=== PATIENT | male | born 1990 | race Caucasian/White ===

== ENCOUNTER 2017-01-24 18:40 | Emergency (ER) | payer BC, OTHER ==
--- NOTE | 2017-01-24 19:39 | UC ---
UC General HPI - HPI Summary HPI Summary: complaint of 2 moles on his neck that he has had for several years bought a kit for removal with rubber bands and floss trying to get them off concerned that they are infected one of them is slightly painful denies fever and chills - History of Current Complaint Chief Complaint: [place] Stated Complaint: SOFT TISSUE COMPLAINT Hx Obtained From: Patient - Allergy/Home Medications Allergies/Adverse Reactions: Allergies Allergy/AdvReac Type Severity Reaction Status Date / Time No Known Allergies Allergy Verified 01/24/17 19:22 PMH/Surg Hx/FS Hx/Imm Hx Previously Healthy: Yes Endocrine History Of: Denies: Diabetes, Thyroid Disease Cardiovascular History Of: Denies: Cardiac Disorders, Hypertension Respiratory History Of: Denies: COPD, Asthma GI/ History Of: Denies: Ulcer - Surgical History Surgical History: None - Family History Known Family History: Negative: Cardiac Disease, Hypertension, Renal Disease - Social History Occupation: Employed Full-time Lives: With Family Alcohol Use: Occasionally Substance Use Type: None Smoking Status (MU): Never Smoked Tobacco Review of Systems Constitutional: Negative Skin: Other - moles Eyes: Negative ENT: Negative Respiratory: Negative Cardiovascular: Negative Gastrointestinal: Negative Genitourinary: Negative Motor: Negative Neurovascular: Negative Musculoskeletal: Negative Neurological: Negative Psychological: Negative All Other Systems Reviewed And Are Negative: Yes Physical Exam Triage Information Reviewed: Yes Appearance: No Pain Distress, Well-Nourished Vital Signs: Initial Vital Signs Temp 99.4 F 01/24/17 19:14 Pulse 113 01/24/17 19:14 Resp 20 01/24/17 19:14 BP 153/81 01/24/17 19:14 Pulse Ox 100 01/24/17 19:14 Vital Signs Reviewed: Yes Eyes: Positive: Conjunctiva Clear ENT: Positive: Pharynx normal, TMs normal Neck: Positive: No Lymphadenopathy Respiratory: Positive: Lungs clear, Normal breath sounds, No respiratory distress Cardiovascular: Positive: RRR, No Murmur, Pulses Normal Abdomen Description: Positive: Nontender, Soft Bowel Sounds: Positive: Present Musculoskeletal Exam: Normal Neurological: Positive: Alert Psychological Exam: Normal Skin: Positive: Other - left side of neck- raised nevus dark brown approx 3x4mm right side of neck raised nevus various shades of brownish red many moles throughout trunk Course/Dx - Course Course Of Treatment: exam completed. d/t variety of moles will refer to dermatology for followup - Differential Dx - Multi-Symptom Provider Diagnoses: nevus, elevated blood pressure Discharge - Discharge Plan Condition: Stable Disposition: HOME Patient Education Materials: Atypical Mole (ED) Referrals: [facility] [place] PHYSICIAN REFERRAL [Outside] Mei Ellis [Medical Doctor] - Additional Instructions: Your blood pressure is elevated. Please contact your primary care provider within 1 day -4 weeks for further evaluation. please call dermatology for followup care Please review your discharge instructions. If your symptoms do not improve please call your primary care provider or return to urgent care
== END 2017-01-24 20:10 | disposition home or self-care (01) ==
LOC: UCEAST 18:40
DX: D22.4 Melanocytic nevi of scalp and neck (principal); R03.0 Elevated blood-pressure reading, without diagnosis of hypertension
CPT/HCPCS: 99211; G0463

== ENCOUNTER 2018-06-28 20:02 | Emergency (ER) | payer BC ==
--- NOTE | 2018-06-28 21:02 | RAD ---
EXAM: US Scrotum CLINICAL HISTORY: 27 years old, male; Pain; Scrotum pain; Additional info: Acute pain lt TECHNIQUE: Real-time ultrasound of the scrotum with color Doppler and image documentation. COMPARISON: No relevant prior studies available. FINDINGS: Right testicle: The right testicle measures 5.2 x 2.6 x 3.0 cm. Homogeneous echogenicity with no mass. Normal arterial waveforms. No torsion. Left testicle: The left testicle measures 5.3 x 2.4 x 3.3 cm. Homogeneous echogenicity with no mass. Normal arterial waveforms. No torsion. Epididymides: The right epididymis measures 0.6 x 1.5 cm AP and transverse. The left epididymal head measures 1.6 x 2.5 cm AP in transverse and contains a 2.5 x 2.5 x 1.6 cm cyst. Scrotum: Unremarkable. IMPRESSION: 1. Normal testicles bilaterally. No torsion. 2. 2.5 x 2.5 x 1.6 cm left epididymal head cyst.
--- NOTE | 2018-06-28 21:06 | ED ---
GI/ HPI - HPI Summary HPI Summary: This patient is a 27 year old M presenting to [facility] with a chief complaint of intermittent left testicular pain since several months ago. The patient reports sudden onset of symptoms but notes the pain then resolved and came back worse than before. The patient notes that he initially thought the pain was due to wearing pants that are too tight. The patient rates the pain 0/10 in severity. Symptoms aggravated by standing for long periods of time. Symptoms alleviated by nothing. Patient reports a lump and swelling to his left testicle. Patient denies dysuria, hematuria, or groin pain. Patient takes Claritin D. Patient notes that he has recently received several vaccines in preparation for a trip to [place]. - History of Current Complaint Chief Complaint: EDUrogenitalProblems Time Seen by Provider: 06/28/18 20:56 Stated Complaint: SWOLLEN TESTICLES Hx Obtained From: Patient Onset/Duration: Started Weeks Ago, Atraumatic, Still Present Timing: Constant, Lasting Days Current Severity: None Pain Intensity: 0 Additional Locations for Males: Testicles - left testicle Associated Signs and Symptoms: Negative: Hematuria, Dysuria Aggravating Factor(s): Walking/Exertion Alleviating Factor(s): Nothing - Allergy/Home Medications Allergies/Adverse Reactions: Allergies Allergy/AdvReac Type Severity Reaction Status Date / Time No Known Allergies Allergy Verified 01/24/17 19:22 PMH/Surg Hx/FS Hx/Imm Hx Endocrine/Hematology History: Denies: Hx Diabetes, Hx Thyroid Disease Cardiovascular History: Denies: Hx Hypertension Respiratory History: Reports: Hx Seasonal Allergies Denies: Hx Asthma, Hx Chronic Obstructive Pulmonary Disease (COPD) GI History: Denies: Hx Ulcer Infectious Disease History: No Infectious Disease History: Denies: Hx Hepatitis, Hx Human Immunodeficiency Virus (HIV), Traveled Outside the in Last 30 Days - Family History Known Family History: Negative: Cardiac Disease, Hypertension, Renal Disease - Social History Alcohol Use: Occasionally Substance Use Type: Reports: None Smoking Status (MU): Never Smoked Tobacco Review of Systems Negative: Fever Negative: Epistaxis Negative: Cough Negative: Vomiting Positive: other - left testicular pain. Negative: dysuria, hematuria All Other Systems Reviewed And Are Negative: Yes Physical Exam - Summary Physical Exam Summary: Appearance: Well-appearing, Well-nourished, lying in bed comfortably Skin: Warm, dry, no obvious rash Eyes: sclera anicteric, no conjunctival pallor ENT: mucous membranes moist, pharynx appears normal Neck: Supple, nontender Respiratory: Clear to auscultation, no signs of respiratory distress Cardiovascular: Normal S1, S2. No murmurs. Normal distal pulses in tibial and radial bilaterally. Abdomen: Soft, nontender, normal active bowel sounds present Musculoskeletal: Normal, Strength/ROM Intact Neurological: A&Ox3, awake and alert, mentation is normal, speech is fluent and appropriate Psychiatric: affect is normal, does not appear anxious or depressed : normal external genitalia, no swelling in either testicle, lie of testicles is normal, swelling palpable of superior pole of left testicle suggestive of a varicocele, no swelling in groin Triage Information Reviewed: Yes Vital Signs On Initial Exam: Initial Vitals Temp Pulse Resp BP Pulse Ox 98.8 F 96 18 147/78 98 06/28/18 20:17 06/28/18 20:17 06/28/18 20:17 06/28/18 20:17 06/28/18 20:17 Vital Signs Reviewed: Yes Diagnostics - Vital Signs Vital Signs Temp Pulse Resp BP Pulse Ox 06/28/18 20:17 98.8 F 96 18 147/78 98 - Laboratory Lab Statement: Any lab studies that have been ordered have been reviewed, and results considered in the medical decision making process. - Additional Comments Diagnostic Additional Comments: Testicular Ultrasound Interpreted by radiologist. Impression: normal testicles bilaterally, no torsion. 2.5 x 2.5 x1.6 cm left epididymal head cyst. Dr. Childers has reviewed this report. GIGU Course/Dx - Diagnoses Provider Diagnoses: Testicular pain, left Discharge - Sign-Out/Discharge Documenting (check all that apply): Patient Departure - Discharge Plan Condition: Stable Disposition: HOME Patient Education Materials: Testicle Pain (ED) Referrals: Krish Nieves MD [Medical Doctor] - Additional Instructions: Contact the urology office to arrange an appt. You should be ok to travel, I don 't think this is likely to worsen substantially in the near future. - Billing Disposition and Condition Condition: STABLE Disposition: Home - Attestation Statements Document Initiated by Scribe: Yes Documenting Scribe: Stella Jorge Provider For Whom Scribe is Documenting (Include Credential): Tre Childers MD Scribe Attestation: I, Stella Jorge, scribed for Tre Childers MD on 06/29/18 at 0054. Scribe Documentation Reviewed: Yes Provider Attestation: The documentation as recorded by the scribe, Stella Jorge accurately reflects the service I personally performed and the decisions made by me, Tre Childers MD
[2018-06-28 23:06] VITALS: BP 122/82
== END 2018-06-28 23:00 | disposition home or self-care (01) ==
LOC: ED 20:02
DX: N50.812 Left testicular pain (principal); N50.3 Cyst of epididymis
CPT/HCPCS: 76870; 99282